=== PATIENT | female | born 1990 | race Two or more races ===

== ENCOUNTER 2024-03-03 06:15 | Day surgery (SDC) | payer BC ==
[2024-02-27 09:43] VITALS: BMI 28.0
[2024-03-03] MEDS ORDERED: ACETAMINOPHEN 325 MG TABLET (FP) PO PRN (07:44)
[2024-03-03] MEDS ORDERED: IBUPROFEN 400 MG TABLET (FP) PO PRN (07:44)
[2024-03-03] MEDS ORDERED: ONDANSETRON 4 MG/2 ML VIAL IVPUSH PRN (08:47)
[2024-03-03] MEDS ORDERED: oxyCODONE HCL 5 MG TABLET PO PRN (08:47)
[2024-03-03] MEDS ORDERED: LACTATED RINGERS SOLUTION 1,000 ML IV SCH (09:00)
[2024-03-03] MEDS: oxyCODONE HCL 5 MG TABLET PO PRN (09:22)
[2024-03-03 10:25] VITALS: BP 109/74; PULSE 86; RESP 20; TEMP 97.1
== END 2024-03-03 10:30 | disposition home or self-care (01) ==
LOC: JASU-SURG 06:15
PROVIDERS: ATTEND Obstetrics & Gynecology
PROC: 0UDB8ZX Extraction of Endometrium, Via Natural or Artificial Opening Endoscopic, Diagnostic (ICD-10-PCS; principal; 2024-03-03 07:30)
DX: N84.0 Polyp of corpus uteri (principal); N84.1 Polyp of cervix uteri
CPT/HCPCS: 81025; 86850; 86900; 86901; 88305-TC; 94760